=== PATIENT | female | born 1980 | race Caucasian/White ===

== ENCOUNTER 2024-08-03 15:33 | Emergency (ER) | payer BC ==
[~2024-08-03] VITALS: Ht 167.6 cm; Wt 78.3 kg
[2024-08-03 15:43] VITALS: TEMP 97.6
[2024-08-03 16:54] VITALS: BP 115/98; PULSE 85; RESP 15; O2SAT 98
[2024-08-03] MEDS ORDERED: SENN-302 PO (17:47)
[2024-08-03] MEDS ORDERED: POLY119P2 PO (17:47)
[2024-08-03] MEDS: sennosides/docusate sodium tablet PO STA (18:12)
[2024-08-03] MEDS: polyethylene glycol 3350 17gm powd pack PO STA (18:12)
== END 2024-08-03 18:18 | disposition home or self-care (01) ==
LOC: ER 15:33
DX: K59.00 Constipation, unspecified (principal)
CPT/HCPCS: 74018; 99283